=== PATIENT | male | born 1990 | race Caucasian/White ===

== ENCOUNTER → 2019-04-27 15:06 | Outpatient (CLI) | payer BC | END | disposition home or self-care (01) | LOC: D.RAD 15:06 | PROVIDERS: ATTEND Nurse Practitioner Family | DX: R06.02 Shortness of breath (principal) ==

== ENCOUNTER 2019-09-05 21:40 | Emergency (ER) | payer BC, OTHER ==
[~2019-09-05] VITALS: Ht 182.9 cm; Wt 102.3 kg
[2019-09-05 22:09] VITALS: Ht 182.9 cm; Wt 102.3 kg
[2019-09-05] MEDS ORDERED: VIBRAMYCIN 100100 MG PO (22:10)
[2019-09-05] MEDS ORDERED: OMEPRAZOLE20 M1 PO (22:11)
[2019-09-05] MEDS ORDERED: IBUPROFEN800 MG PO (22:11)
[2019-09-05 23:17] LABS: BASOPHILS 0.2 % (0-2); EOSINOPHILS 1.2 % (0-7); HEMATOCRIT 39.1 % (42.0-54.0); HEMOGLOBIN 12.8 g/dL (13.5-17.5); IMMATURE GRANULOCYTES 0.5 % (0-5); LYMPHOCYTES 10.2 % (15-50); MCHC 32.7 g/dL (31.0-37.0); MCV 88.7 fL (80.0-100.0); MONOCYTES 9.4 % (2-11); NEUTROPHILS 78.5 % (40-80); PLATELET COUNT 381 10x3/uL (130-400); RBC 4.41 10x6/uL (4.20-6.10); WBC 13.1 10x3/uL (4.8-10.8)
[2019-09-05 23:27] LABS: CALC OSMOLALITY 274 mosm/kg (275-300); CARBON DIOXIDE 28.5 mmol/L (21.0-32.0); CHLORIDE - SERUM 99 mmol/L (98-107); CREATININE - SERUM 1.1 mg/dL (0.6-1.3); GLUCOSE 98 mg/dL (74-106); POTASSIUM - SERUM 3.7 mmol/L (3.5-5.1); SODIUM 138 mmol/L (136-145); UREA NITROGEN 9 mg/dL (7-18); eGFR NON AFRICAN AMERICAN 85 mL/min (90-120)
[2019-09-05 23:33] LABS: ALBUMIN 3.5 g/dL (3.4-5.0); ALKALINE PHOSPHATASE 81 U/L (46-116); ALT (SGPT) 42 U/L (10-68); BILIRUBIN - TOTAL 0.79 mg/dL (0.2-1.3); PROTEIN - SERUM 7.8 g/dL (6.4-8.2)
[2019-09-06 01:09] VITALS: BP 124/73
== END 2019-09-06 01:10 | disposition home or self-care (01) ==
LOC: D.ER 21:40
PROVIDERS: Family Medicine
DX: L02.31 Cutaneous abscess of buttock (principal); K21.9 Gastro-esophageal reflux disease without esophagitis